=== PATIENT | female | born 1935 | race Hispanic/Latino ===

== ENCOUNTER 2017-12-19 19:35 | Emergency (ER) | payer OTHER ==
[~2017-12-19 19:35] MED LIST: ASPIR 8181 MG; B 12; CALCIUM 600 +1 EAC8; CYMBALTA30 MG; GEMFIBROZIL600 MG; GLIPIZIDE ER5 MG; LOSARTAN POTAS100 MG; NAPROXEN500 MG; NEXIUM20 M1; SERTRALINE HCL100 MG
== END 2017-12-19 21:11 | disposition short-term general hospital (02) ==
LOC: ER 19:35
DX: Z04.3 Encounter for examination and observation following other accident (principal)